=== PATIENT | female | born 1980 | race Caucasian/White ===

== ENCOUNTER 2019-04-04 05:30 | Day surgery (SDC) | payer OTHER ==
[2019-04-04] MEDS ORDERED: DOXYCYCLINE HY100 M2 PO (16:46)
[2019-04-04] MEDS ORDERED: Tylenol #3 PO (16:46)
== END 2019-04-04 19:55 | disposition home or self-care (01) ==
LOC: CIR.AMB 05:30
DX: N84.0 Polyp of corpus uteri (principal); D25.0 Submucous leiomyoma of uterus